=== PATIENT | female | born 1965 | race Caucasian/White ===

== ENCOUNTER 2023-07-23 03:27 | Day surgery (SDC) | payer OTHER, SELFPAY ==
[2023-06-26 10:47] VITALS: BMI 39.2
--- NOTE | 2023-07-20 08:57 | SUR.PREOP ---
Patient called regarding upcoming procedure. Voicemail left regarding appointment times.
--- NOTE | 2023-07-20 16:20 | P.HP_ITS ---
History of Present Illness History of Present Illness Consent: Risks, benefits, and alternatives have been discussed and questions answered. Patient agrees to proceed with procedure. Chief complaint: neoplasm screening Narrative: Elizabeth Gan is a 57 year old female who is referred for colon cancer screening. Review of Systems Review of Systems: All systems reviewed & are unremarkable except as noted in HPI and below PMFSH Past Medical History Medical History Anxiety Depression Dyslipidemia Hypothyroidism OAB (overactive bladder) Vitamin B12 deficiency Surgical History Surgical History History of breast biopsy 1989 History of surgery on arm ORIF left Social History Social History Smoking status: Never smoker Alcohol intake: never Substance use: never Substance use type: does not use Lack of Transportation: No Lack of Food: Never True Current Housing: I Have Housing Concerned About Future Housing: No Difficulty Paying Gas/Electric Bills: No Difficulty Paying for Meds: No Currently Unemployed: No Difficulty w/ Childcare or Family Care: No Living arrangements: with family Occupation/Education: occupation Gender identity (if verbalized by the patient): Female Sexual Orientation (if Verbalized by the Patient): Straight or Heterosexual Spiritual care concerns: No Meds Home Medications and Allergies Home Medications Medication Instructions Recorded Confirmed Type alprazolam 0.25 mg tablet 0.25 mg PO BID PRN anxiety #30 tabs 07/27/22 07/23/23 Rx clonazepam 0.5 mg tablet 0.5 mg PO BID #60 tabs 05/21/23 07/23/23 Rx oxybutynin chloride 10 mg 10 mg PO DAILY #90 tabs 05/28/23 07/23/23 Rx tablet,extended release 24 hr atenolol 50 mg tablet 25 mg PO DAILY #45 tabs 06/05/23 07/23/23 Rx levothyroxine 50 mcg tablet 50 mcg PO DAILY #90 tabs 06/19/23 07/23/23 Rx liothyronine 5 mcg tablet 5 mcg PO DAILY #90 tabs 06/19/23 07/23/23 Rx simvastatin 20 mg tablet 20 mg PO DAILY #90 tabs 07/10/23 07/23/23 Rx bupropion HCl 150 mg 24 hr tablet, 150 mg PO QAM #30 tabs 07/17/23 07/23/23 Rx extended release (Wellbutrin XL) Allergies Allergy/AdvReac Type Severity Reaction Status Date / Time moxifloxacin [From Avelox] AdvReac Intermediate Unknown Verified 07/23/23 07:09 Exam Resp: Auscultation: clear to auscultation bilaterally Cardio: Rate: regular rate Rhythm: regular rhythm GI: GI Palp: Yes Soft to palpation and No Tenderness to palpation present (GI) Assessment and Plan Assessment and plan (1) Colon cancer screening: Code(s): Z12.11 - Encounter for screening for malignant neoplasm of colon Status: Acute Assessment and Plan: Colonoscopy with possible biopsy or polypectomy or cautery or injection of sub stances.
[2023-07-23 07:11] VITALS: BP 120/76; PULSE 75; RESP 16; TEMP 36.1; O2SAT 99
[2023-07-23] MEDS: LACTATED RINGERS 1,000 ML 150 ML IV CONT (07:16)
--- NOTE | 2023-07-23 08:20 | WPDANESEPPF ---
Anes - Initial Pre Proc Eval Procedure: Operation Date: 07/23/23 08:30 Proposed Procedures p Screening Colonoscopy - Miguel Godinez MD Date/Time: 07/23/23 08:20 Surgeon: Miguel Godinez MD Pre Op Diagnosis: neoplasm screening Patient Data Age: 57 Gender: F Height: 1.65 m Weight: 104.9 kg Last Vital Signs Temp 97 F L 07/23/23 07:11 Pulse 75 07/23/23 07:11 Resp 16 07/23/23 07:11 BP 120/76 07/23/23 07:11 Pulse Ox 99 07/23/23 07:11 O2 Del Method Room Air 07/23/23 07:11 Allergies Allergy/AdvReac Type Severity Reaction Status Date / Time moxifloxacin [From Avelox] AdvReac Intermediate Unknown Verified 07/23/23 07:09 Home Medications Medication Instructions Recorded Confirmed Type alprazolam 0.25 mg tablet 0.25 mg PO BID PRN anxiety #30 tabs 07/27/22 07/23/23 Rx clonazepam 0.5 mg tablet 0.5 mg PO BID #60 tabs 05/21/23 07/23/23 Rx oxybutynin chloride 10 mg 10 mg PO DAILY #90 tabs 05/28/23 07/23/23 Rx tablet,extended release 24 hr atenolol 50 mg tablet 25 mg PO DAILY #45 tabs 06/05/23 07/23/23 Rx levothyroxine 50 mcg tablet 50 mcg PO DAILY #90 tabs 06/19/23 07/23/23 Rx liothyronine 5 mcg tablet 5 mcg PO DAILY #90 tabs 06/19/23 07/23/23 Rx simvastatin 20 mg tablet 20 mg PO DAILY #90 tabs 07/10/23 07/23/23 Rx bupropion HCl 150 mg 24 hr tablet, 150 mg PO QAM #30 tabs 07/17/23 07/23/23 Rx extended release (Wellbutrin XL) Patient hx anesthesia problems: none Family hx anesthesia problems: none Results Review: All pre-operative results and documents have been reviewed as part of the pre-operative evaluation. [facility] Past Medical History Medical History Anxiety Depression Dyslipidemia Hypothyroidism OAB (overactive bladder) Vitamin B12 deficiency Surgical History Surgical History History of breast biopsy 1989 History of surgery on arm ORIF left Social History Social History Smoking status: Never smoker Alcohol intake: never Substance use: never Substance use type: does not use Lack of Transportation: No Lack of Food: Never True Current Housing: I Have Housing Concerned About Future Housing: No Difficulty Paying Gas/Electric Bills: No Difficulty Paying for Meds: No Currently Unemployed: No Difficulty w/ Childcare or Family Care: No Living arrangements: with family Occupation/Education: occupation Gender identity (if verbalized by the patient): Female Sexual Orientation (if Verbalized by the Patient): Straight or Heterosexual Spiritual care concerns: No Anes - Eval Final PreProcedure Day of Procedure 07/23/23 08:20 Patient weight: obese Heart: regular rate and rhythm Lungs: clear to auscultation Airway: Mallampati scale class II Neurological: alert and oriented Last oral intake: >/= 8 hours ASA classification: III Emergent: no Anesthetic plan: proceed Anesthesia type and monitoring: general GIVS and standard monitoring Results Review: All pre-operative results and documents have been reviewed as part of the pre-operative evaluation. Informed Consent: The patient's anesthetic plan and its attendant risks and benefits were discussed with the patient/family/POA. Questions were solicited and answers provided to the satisfaction of the patient/family/POA.
[2023-07-23 08:46] VITALS: BP 98/58; PULSE 71; RESP 21; O2SAT 96
[2023-07-23 08:56] VITALS: BP 115/68; PULSE 71; RESP 26; O2SAT 100
[2023-07-23 09:06] VITALS: BP 108/70; PULSE 74; RESP 24; O2SAT 100
== END 2023-07-23 09:13 | disposition home or self-care (01) ==
PROVIDERS: PCP Physician Assistant Medical; Visit Provider Internal Medicine Gastroenterology
PROC: 0DJD8ZZ Inspection of Lower Intestinal Tract, Via Natural or Artificial Opening Endoscopic (ICD-10-PCS; CPT 45378; principal; 2023-07-23 08:30)
DX: Z12.11 Encounter for screening for malignant neoplasm of colon (principal); D12.5 Benign neoplasm of sigmoid colon; D12.4 Benign neoplasm of descending colon; K64.8 Other hemorrhoids; F41.9 Anxiety disorder, unspecified; F32.A Depression, unspecified; E78.5 Hyperlipidemia, unspecified; E03.9 Hypothyroidism, unspecified; N32.81 Overactive bladder; E53.8 Deficiency of other specified B group vitamins; E66.9 Obesity, unspecified; Z68.38 Body mass index [BMI] 38.0-38.9, adult; Z98.890 Other specified postprocedural states
CPT/HCPCS: 45380; 45385; 88305; J7120

== ENCOUNTER 2024-07-07 15:25 | Outpatient (CLI) | payer OTHER, SELFPAY ==
--- NOTE | ~2024-07-07 | MM_ITS ---
EXAMINATION: MM screening adiel BI w lawson HISTORY: New baseline screening. Personal history of excisional biopsy within the right breast yielding benign results. TECHNIQUE: Craniocaudal and mediolateral oblique 3-D tomosynthesis images were obtained and synthetic 2-D images were generated. CAD analysis was submitted and interpreted. COMPARISON: No prior mammogram is available for comparison at this institution. Prior imaging was per formed more than 30 years earlier BREAST PARENCHYMAL COMPOSITION: There are scattered areas of fibroglandular density. FINDINGS: Bulky calcifications within the upper inner left breast, benign in morphology. Otherwise unremarkable parenchymal pattern without suspicious microcalcifications, architectural dist ortion, discrete masses or significant asymmetry. IMPRESSION: 1. No mammographic evidence of malignancy. 2. Recommend routine screening mammography in one year. BI-RADS Category 2: Benign finding(s). Reviewed, dictated and finalized at location A. CARE WORKER
== END 2024-07-07 15:26 | disposition home or self-care (01) ==
LOC: ANHIMG 15:29
PROVIDERS: PCP Physician Assistant Medical; Visit Provider Physician Assistant Medical
DX: Z12.31 Encounter for screening mammogram for malignant neoplasm of breast (principal)
CPT/HCPCS: 77063; 77067

== ENCOUNTER 2025-07-10 08:27 | Outpatient (CLI) | payer OTHER, SELFPAY ==
--- NOTE | ~2025-07-10 | MM_ITS ---
EXAMINATION: MM screening adiel BI w lawson HISTORY: Screening TECHNIQUE: Craniocaudal and mediolateral oblique 3-D tomosynthesis images were obtained and synthetic 2-D images were generated. CAD analysis was submitted and interpreted. COMPARISON: 07/07/2024 BREAST PARENCHYMAL COMPOSITION: Not Dense: The breasts are almost entirely fatty. FINDINGS: There is no evidence of suspicious mass, calcification, or architectural distortion to suggest malignancy in either breast. There has been no suspicious interval change. IMPRESSION: 1. No mammographic evidence of malignancy. 2. Recommend routine screening mammography in one year. BI-RADS Category 1: Negative Reviewed, dictated and finalized at location O. ING AND VENTILATION ENGINEER
--- OUTSIDE RECORDS SUMMARY | 2025-07-10 08:30 | XMS_ITS | Clinical Summary ---
Author Organization [facility] Address [facility] [place] [address] Care Team Providers Care Insurance Sales Producer Name Role Phone Lana Guallpa PA-C Primary Care Provider [phone]- [phone] Immunizations Immunization Administration Dates Next Due MODERNA COVID-19 (12+) MRNA, LNP-S, PF, 100 MCG/ 0.5 ML DOSE 08/10/2020,07/13/2020 Social History Tobacco Use Types Packs/Day Years Used Date Smoking Tobacco: Never Assessed Comments Unknown Sex and Gender Information Value Date Recorded Sex Assigned at Not on file Legal Sex Female 8:13 PM CDT Gender Identity Not on file Sexual Orientation Not on file Plan of Treatment Health Maintenance Due Date Last Done Comments Cervical Cancer Screening Pap Smear (Age 30 to 64) Every 3 Years 1963 Colorectal Cancer Screening Colonoscopy (10 Years) 1963 Annual Physical 10/11/1966 Hepatitis C 10/11/1981 DTaP, Tdap and Td Vaccines (1 - Tdap) 10/11/1982 Cervical Cancer Screening Pap with HPV Testing (Age 30 to 64) Every 5 Years 10/11/1993 Cervical Cancer Screening with HPV 10/11/1993 Pneumococcal Vaccine: 50+ Years (1 of 1 - PCV) 10/11/2013 Zoster Vaccines (1 of 2) 10/11/2013 COVID-19 Vaccine (3 - season) 2025 08/10/2020, 07/13/2020 Influenza Adult (#1) 2025 Mammogram Screening 11/14/2025 11/15/2023, 02/05/2023, 12/01/2021, Additional history exists RSV Immunization or 60+ Years (1 - 1-dose 75+ series) 10/11/2038 Hepatitis A Vaccines Aged Out No long er eligible based on patient's age to complete this topic Meningococcal B Vaccine Aged Out No l onger eligible based on patient's age to complete this topic Meningococcal Vaccine Aged Out No keshav viviana eligible based on patient's age to complete this topic RSV Immunizations Under 20 Months Aged Out No longer eligible based on patient's age to complete this topic Procedures Procedure Name Priority Date/Time Associated Diagnosis Comments MG DIAG W NAKIA RT DIGI Routine 11/15/2023 9:00 AM CDT Unspecified lump in the right breast, unspecified quadrant from Last 3 Months or Most Recently Relevant to Health Maintenance Results * MG DIAG W NAKIA RT DIGI (11/15/2023 9:00 AM CDT) Anatomical Region Laterality Modality Breast Right Mammography, Rad iographic Imaging 11/15/2023 9:10 AM CDT Impressions 11/15/2023 9:14 AM CDT IMPRESSION: 1. No mammographically suspicious change since the previous exams. 2. No sonographically discrete or suspicious abnormality at the indicated site of concern. 3. Follow-up as described. Recommendation: 1: Routine screening mammogram Bilateral in January 2024 Overall assessment: ACR BI-RADS Category 2 - Benign. Return for Routine Follow-Up: Yes Ordered By: LANA GUALLPA Interpreted By: Yair Cook MD, 11/15/2023 9:10 AM Narrative 11/15/2023 9:14 AM CDT Examination: Digital right diagnostic mammogram with CAD. [id number] Clinical history: Lump near the 8:00 position. Comparison: 02/05/2023, 12/01/2021, 2020. Technique: CC, MLO, true lateral and spot compression CC and MLO right digital mammograms. The exam was interpreted with the use of a computer-aided detection (CAD) system. Additional 3-D Tomosynthesis images were acquired. Tissue density: The breast tissue contains scattered fibroglandular densities. Findings: There has been no suspicious change. The breast again demonstrates mixed fat and fibroglandular tissue. Benign-appearing calcification noted. No suspicious mass, microcalcification or area of architectural distortion can be identified. A marker was placed at the indicated site of concern, lying near the 8:00 position projecting approximately 4 cm deep to the nipple on the true lateral view. No discrete underlying mammographic abnormality at this site is identified, including under spot compression. Examination: Right breast ultrasound. Technique:Grayscale images. Findings: Evaluation at the indicated site of concern, lying in the 8:00 position 8 cm from the nipple, fails to demonstrate any discrete solid or cystic mass. [place] appearing tissue architecture is demonstrated. No sonographically suspicious abnormality is identified. Physical exam surveillance is advised with further management at this point guided on that basis. From a mammographic standpoint, follow-up in January 2024 for routine screening would seem adequate. These findings were discussed with the patient. us aLna Guallpa PA-C MAMMO Final Resu lt from Last 3 Months or Most Recently Relevant to Health Maintenance Insurance [facility] [place] [address] Care Teams Insurance Sales Producer Relationship Specialty Start Date End Date Lana Guallpa PA-C PCP - General NURSE PRACTITIONER 10/12/20
== END 2025-07-10 08:28 | disposition home or self-care (01) ==
LOC: ANHFOHIMG 08:28
PROVIDERS: PCP Physician Assistant Medical; Visit Provider Physician Assistant Medical
DX: Z12.31 Encounter for screening mammogram for malignant neoplasm of breast (principal)
CPT/HCPCS: 77063; 77067

== ENCOUNTER 2025-07-10 08:55 | Outpatient (CLI) | payer OTHER, SELFPAY ==
--- OUTSIDE RECORDS SUMMARY | 2025-07-10 08:58 | XMS_ITS | Clinical Summary ---
Author Organization [facility] Address [facility] [place] [address] Care Team Providers Care Paramedic Name Role Phone Lana Guallpa PA-C Primary Care Provider [phone]- [phone] Immunizations Immunization Administration Dates Next Due MODERNA [...] Examination: Digital right diagnostic mammogram with CAD. [id number] Clinical history: Lump near the 8:00 position. [...] demonstrate any discrete solid or cystic mass. [place] appearing tissue architecture is demonstrated. No sonographically suspicious abnormality is identified. Physical exam surveillance is advised with further management at this point guided on that basis. From a mammographic standpoint, follow-up in January 2024 for routine screening would seem adequate. These findings were discussed with the patient. us Lana Guallpa PA-C MAMMO Final Resu lt from Last 3 Months or Most Recently Relevant to Health Maintenance Insurance [facility] Care Teams Paramedic Relationship Specialty Start Date End Date Lana Guallpa PA-C PCP - General NURSE PRACTITIONER 10/12/20
[2025-07-10 09:29] LABS: Hematocrit 41.7 % (37.0-47.0); Hemoglobin 13.5 g/dL (12.0-15.0); Immature Granulocyte Percent A 0.2 % (0-0.5); Lymphocytes Absolute Auto 1.67 K/mm3 (0.9-3.2); Mean Corpuscular HGB Conc 32.4 g/dl (32-36); Mean Corpuscular Hemoglobin 30.5 pg (26-34); Mean Corpuscular Volume 94.3 fl (80-100); Nucleated Red Blood Cells Absolute Auto 0.000 K/mm3 (0.0-0.012); Nucleated Red Blood Cells Perc 0.0 % (0.0-0.2); Platelet Count Result 278 k/mm3 (150-375); Red Blood Count 4.42 M/mm3 (4.2-5.4); White Blood Count 4.5 K/mm3 (4.5-10.0)
[2025-07-10 09:44] LABS: Alanine Aminotransferase 19 U/L (6-35); Albumin Level 4.0 g/dL (3.5-5.1); Alkaline Phosphatase 86 U/L (38-126); Anion Gap 5 mmol/L (4-12); Aspartate Amino Transferase 18 U/L (14-36); Bilirubin,Total 0.4 mg/dL (0.2-1.3); Blood Urea Nitrogen 15 mg/dL (7-17); Calcium 9.2 mg/dL (8.4-10.2); Carbon Dioxide 28 mmol/L (22-30); Chloride 105 mmol/L (98-107); Cholesterol 174 mg/dL (0-200); Estimated Glomerular Filt Rate 54; Glucose 94 mg/dL (65-110); HDL Direct 73 mg/dL; Potassium 4.6 mmol/L (3.4-5.0); Sodium 138 mmol/L (137-145); Total Protein 6.8 g/dL (6.3-8.2); Triglycerides 77 mg/dL (<150)
[2025-07-10 10:15] LABS: Thyroid Stimulating Hormone 1.950 uIU/mL (0.465-4.680)
[2025-07-10 10:34] LABS: Vitamin B12 842.0 pg/mL (239-931)
== END 2025-07-10 08:56 | disposition home or self-care (01) ==
LOC: ANHLAB 08:56
PROVIDERS: PCP Physician Assistant Medical; Visit Provider Physician Assistant Medical
DX: F32.A Depression, unspecified (principal); E78.5 Hyperlipidemia, unspecified; F41.9 Anxiety disorder, unspecified; E03.9 Hypothyroidism, unspecified; E53.8 Deficiency of other specified B group vitamins; Z00.00 Encounter for general adult medical examination without abnormal findings
CPT/HCPCS: 36415; 80053; 80061; 82306; 82607; 84443; 85025